=== PATIENT | male | born 1965 | race Hispanic/Latino ===

== ENCOUNTER 2017-07-14 12:47 | Emergency (ER) | payer MEDICARE ==
[2017-07-14 13:22] VITALS: BP 152/88
--- NOTE | 2017-07-14 14:46 | Emergency Department Report ---
HPI - General Chief Complaint: Dental/Oral Time Seen by Provider: 07/14/17 14:45 - HPI HPI: Patient reports toothache and reported that he was seen at [facility] this morning for toothache pain and right jaw pain. He said they told them that he needs to follow-up with oral surgeon because he has an abscess and he needs to have abscess lanced. Patient said that they gave him penicillin VK to take every 6 hours and ibuprofen prescription. Patient said that he does not have any insurance and is not able to follow up with oral surgeon. He said he's been having toothache for the last 4 days but abscess came up to days ago to his right lower tooth area. Denies any trauma to mild. Denies any fever or chills. Denies any sore throat or difficulty swallowing. Denies any chest pain or shortness of breath. Pain is 9 out of 10 and throbbing and achy to right lower tooth. He said the Motrin is not helping. Pain is worse with talking and eating. ED Past Medical Hx - Past Medical History Previous Medical History?: Yes Additional medical history: dental caries - Surgical History Past Surgical History?: Yes Additional Surgical History: Tonsillectomy - Family History Family history: no significant - Social History Smoking Status: Current Every Day Smoker Substance Use Type: None, Prescribed - Medications Home Medications: Home Medications Medication Instructions Recorded Confirmed Last Taken Type HYDROcodone/APAP 5-325 [Henlawson 1 each PO Q6HR PRN #12 tablet 07/14/17 Unknown Rx 5/325] ED Review of Systems ROS: Stated complaint: RIGHT SIDE JAW PAIN, Other details as noted in HPI Comment: All other systems reviewed and negative Constitutional: no symptoms reported ENT: dental pain, other (tooth abscess). denies: ear pain, throat pain, hearing loss, epistaxis, congestion Respiratory: no symptoms reported Cardiovascular: denies: chest pain, palpitations, dyspnea on exertion, orthopnea , edema, syncope Gastrointestinal: denies: abdominal pain, nausea, vomiting Musculoskeletal: denies: back pain, arthralgia Skin: denies: rash Neurological: denies: headache Physical Exam - Physical Exam Vital Signs: Vital Signs 07/14/17 13:16 Temperature 98.2 F Pulse Rate 74 Respiratory 18 Rate Blood Pressure 152/88 O2 Sat by Pulse 97 Oximetry General: This is a 52-year-old male well-nourished well-developed in no acute distress. Physical Exam: Head: Normocephalic, atraumatic, no abrasion, no bruising and no contusion. Eyes: Biateral pupils equal and reactive to light, bilateral EOM intact.. Bilateral conjunctival and sclera without injection, normal accommodation. Mouth: Moist, positive gingival enlargement and gingivitis. Multiple dental caries noted. Indurated ,nonfluctuant area noted to tooth #32, 33 and 29. Erythema noted around indurated area. Tenderness around indurated area. Tongue is normal. Uvula is midline, no pharyngeal erythema or exudate. No peritonsillar abscesses noted. Ears: Bilateral EAC without any redness drainage or swelling, bilateral TM pearly borges ,bilateral tragus is normal and nontender. No auricular abnormality. No Mastoid bones tenderness. Nose: Moist, normal mucosa. No frontal or maxillary sinus tenderness. Neck: Supple, Positive Cervical adenopathy, full range of motion and no C-spine tenderness. No swelling or tracheal deviation Cardiovascular: S1, S2. Regular rate and rhythm. No murmur. Capillary refill is less then 3 seconds. Lungs: Clear to auscultate bilaterally. No rhonchi, wheezes or rales. No chest wall tenderness MSK: Strength 5/5 in all extremities. No joint deformity or crepitus. Normal inspection. Full range of motion to all extremities Extremities: No clubbing, cyanosis or edema. +2 pulses. No neurovascular compromise Skin: Clean, dry and intact. No rash or lesions. Psych: Normal mood and behavior. ED Course Vital Signs 07/14/17 13:16 Temperature 98.2 F Pulse Rate 74 Respiratory 18 Rate Blood Pressure 152/88 O2 Sat by Pulse 97 Oximetry - Reevaluation(s) Reevaluation #1: 07/14/17 15:39 Patient stable throughout ED stay ED Medical Decision Making - Medical Decision Making ED course: Patient here before that he was seen at [facility] this morning and he told him that he needs to see oral surgery and for dental abscess that needs to be drained. Patient said they put him on penicillin VK to take every 6 hours for 10 days and also Motrin 800 mg to take as needed for pain. Patient came to the emergency room because he said he still having pain despite taking Motrin and he does not have insurance to see oral surgeon or he does not have dental insurance. Patient is afebrile. Clinical findings were very poor oral care, gingivitis, widespread multiple caries and oral cellulitis with positive induration but nonfluctuant. Discussed with patient that he needs to start penicillin REBECCA, take Motrin as needed for pain and I will add Henlawson if Motrin does not help his pain. Discussed with him that he will need to see a dentist and he can follow-up at [facility] clinic to call to schedule an appointment. I also encouraged him to stop smoking because he is a daily smoker and he voiced understanding. Patient discharged home in stable condition with prescription for Henlawson and to start taking penicillin and Motrin as prescribed by [facility]. Critical care attestation.: If time is entered above; I have spent that time in minutes in the direct care of this critically ill patient, excluding procedure time. ED Disposition Clinical Impression: Toothache, Dental caries, Gingivitis, Oral cellulitis Disposition: TO HOME OR SELFCARE Is pt being admited?: No Does the pt Need Aspirin: No Condition: Stable Instructions: Gingivitis (ED), Cellulitis (ED), Dental Caries (ED), Toothache ( ED), How to Stop Smoking (ED) Additional Instructions: Please increase her fluid intake Please stop smoking Please follow up at [facility]. See phone number and address discharge instruction paperwork Her go with Listerine mouthwash twice daily You're seen at [facility] today and they prescribed penicillin and Motrin please start taking these medication. Do not drive or operate heavy machinery while taking Henlawson as this medication causes drowsiness Prescriptions: HYDROcodone/APAP 5-325 [Henlawson 5/325] 1 each PO Q6HR PRN #12 tablet PRN Reason: Pain Referrals: [facility] [Outside] - 07/16/17 Forms: Work/School Release Form(ED)
== END 2017-07-14 15:51 | disposition home or self-care (01) ==
LOC: ED 12:47
DX: K02.9 Dental caries, unspecified (principal); K05.10 Chronic gingivitis, plaque induced; K12.2 Cellulitis and abscess of mouth; F17.200 Nicotine dependence, unspecified, uncomplicated
CPT/HCPCS: 99282